=== PATIENT | male | born 1945 | race Caucasian/White ===

== ENCOUNTER 2022-01-31 17:45 | Inpatient (IN) | payer OTHER, SELFPAY ==
[2022-01-31 18:18] LABS: #Lymphocytes 0.4 thou/uL (1.20-3.40); #Monocytes 0.5 thou/uL (0.11-0.59); %Basophils 0.1 % (0.0-1.0); %Eosinophils 0.1 % (0.0-10.0); %Lymphocytes 2.8 % (21.0-51.0); %Monocytes 3.5 % (0.0-10.0); %Neutrophils 93.5 % (42.0-75.0); Hemoglobin 15.5 g/dL (14.0-18.0); Mean Corpuscular HGB CONC 33.1 g/dL (32.0-36.0); Mean Corpuscular Hemoglobin 33.9 pg (27.0-31.0); Mean Platelet Volume 7.9 fL (7.4-10.4); Platelet Count 329 thou/uL (130-400); RBC Distribution Width 11.6 % (11.5-14.5); Red Blood Cell (RBC) Count 4.56 mill/uL (4.70-6.10); White Blood Cell (WBC) Count 14.9 thou/uL (4.8-10.8)
[2022-01-31 18:41] LABS: ALT (SGPT) 9 U/L (8-55); AST (SGOT) 21 U/L (5-34); Albumin 4.3 g/dL (3.4-4.8); Alkaline Phosphatase 62 U/L (40-110); Anion Gap 18 mmol/L (10-20); BUN (Urea Nitrogen) 19 mg/dL (8.4-25.7); Bilirubin, Total 0.5 mg/dL (0.2-1.2); Calc. Creatinine Clearance 0 mL/min (70-130); Calcium 8.9 mg/dL (7.8-10.44); Carbon Dioxide 26 mmol/L (23-31); Chloride 107 mmol/L (98-107); Estimated GFR 81; Globulin 2.8 g/dL (2.4-3.5); Glucose 116 mg/dL (83-110); Potassium 5.5 mmol/L (3.5-5.1); Protein, Total 7.1 g/dL (5.8-8.1); Sodium 145 mmol/L (136-145)
[2022-01-31] MEDS ORDERED: Enoxaparin Sodium 80 MG/0.8 ML SYRINGE ONE (19:03)
[2022-01-31] MEDS ORDERED: Enoxaparin Sodium 60 MG/0.6 ML SYRINGE ONE (19:04)
[2022-01-31 19:12] LABS: CKMB 18.7 ng/mL (0-6.6)
[2022-01-31 20:13] LABS: SARS-CoV-2 NAA Rapid Test Not Detected (NotDetected)
[2022-01-31] MEDS ORDERED: Nitroglycerin 0.4 MG TAB (25 Tab Bottle) SL PRN (20:33)
[2022-01-31] MEDS ORDERED: Morphine 2 MG/ML VIAL SLOW IVP PRN (20:34)
[2022-01-31] MEDS ORDERED: Ondansetron PF 4 MG/2 ML Vial IVP PRN (20:34)
[2022-01-31] MEDS ORDERED: Aspirin Chewable 81 MG TAB PO SCH (20:45)
[2022-01-31] MEDS ORDERED: Enoxaparin Sodium 40 MG/0.4 ML SYRINGE SC SCH (20:45)
[2022-01-31] MEDS ORDERED: hydrALAZINE 20 MG/ML VIAL SLOW IVP PRN (20:58)
[2022-01-31] MEDS ORDERED: Magnesium 2 GM/50 ML(in water) 2 GM in Premix Bag 1 BAG IVPB SCH (21:00)
[2022-01-31] MEDS ORDERED: Furosemide 20 MG/2 ML VIAL SLOW IVP SCH (21:00)
[2022-01-31] MEDS ORDERED: Clopidogrel Bisulfate 75 MG TAB PO SCH (21:00)
[2022-01-31 21:32] LABS: Troponin I 2.502 ng/mL (< 0.028)
[2022-01-31] MEDS ORDERED: Famotidine 20 MG TAB PO SCH (22:00)
[2022-01-31] MEDS: Nicotine 21 MG PATCH TD SCH (22:01)
[2022-01-31] MEDS: Atorvastatin Calcium 40 MG TAB PO SCH (22:01)
[2022-01-31] MEDS: guaiFENesin ER 600 MG TAB PO SCH (22:01)
[2022-01-31] MEDS: methylPREDNISolone Sod Succ 40 MG VIAL IVP SCH (22:02)
[2022-01-31] MEDS: cefTRIAXone\\ROCEPHIN 1 GM in Sodium Chloride 0.9% 100 ML IVPB SCH (23:28)
[2022-02-01] MEDS: Azithromycin 500 MG in Sodium Chloride 0.9% 250 ML 250 ML IVPB SCH ×2 (00:16→22:45)
[2022-02-01 01:39] LABS: Troponin I 2.777 ng/mL (< 0.028)
[2022-02-01 01:52] LABS: Bilirubin Negative (Negative); Blood, Urine Negative (Negative); Clarity Turbid (Clear); Glucose, Urine (Dipstick) Normal (Negative); Ketone, Urine 10 mg/dL (Negative); Leukocyte 25 Leu/uL (Negative); Nitrite Negative (Negative); Protein, Urine (Dipstick) 30 mg/dL (Neg-Trace); Specific Gravity, Urine 1.013 (1.002-1.036); Urobilinogen Normal mg/dL (Less than 2)
[2022-02-01 01:55] LABS: Urine Culture Reflex No No
[2022-02-01 02:07] LABS: RBC/HPF None Seen HPF (0-3)
[2022-02-01 02:09] LABS: Bacteria/HPF 4+ HPF (None Seen)
[2022-02-01 03:45] LABS: #Lymphocytes 0.6 thou/uL (1.20-3.40); #Monocytes 0.2 thou/uL (0.11-0.59); #Neutrophils 8.6 thou/uL (1.40-6.50); %Lymphocytes 6.7 % (21.0-51.0); %Monocytes 1.6 % (0.0-10.0); %Neutrophils 91.7 % (42.0-75.0); Hemoglobin 14.3 g/dL (14.0-18.0); Mean Corpuscular HGB CONC 31.5 g/dL (32.0-36.0); Mean Corpuscular Hemoglobin 32.6 pg (27.0-31.0); Mean Platelet Volume 8.1 fL (7.4-10.4); Platelet Count 301 thou/uL (130-400); RBC Distribution Width 11.7 % (11.5-14.5); Red Blood Cell (RBC) Count 4.38 mill/uL (4.70-6.10); White Blood Cell (WBC) Count 9.4 thou/uL (4.8-10.8)
[2022-02-01 04:09] LABS: ALT (SGPT) 10 U/L (8-55); AST (SGOT) 21 U/L (5-34); Alkaline Phosphatase 55 U/L (40-110); Anion Gap 18 mmol/L (10-20); BUN (Urea Nitrogen) 25 mg/dL (8.4-25.7); Bilirubin, Total 0.4 mg/dL (0.2-1.2); Calc. Creatinine Clearance 58 mL/min (70-130); Calcium 9.4 mg/dL (7.8-10.44); Carbon Dioxide 26 mmol/L (23-31); Cardiac Risk 2.6 (Less than 4.5); Chloride 106 mmol/L (98-107); Cholesterol 168 mg/dl (< 200 Desired); Estimated GFR 81; Globulin 2.7 g/dL (2.4-3.5); Glucose 143 mg/dL (83-110); HDL Cholesterol 64 mg/dL (>60 Neg Risk); LDL Cholesterol, Calculated 93 mg/dL; Potassium 4.5 mmol/L (3.5-5.1); Protein, Total 6.7 g/dL (5.8-8.1); Sodium 145 mmol/L (136-145); Triglycerides 53 mg/dL (Less than 150)
[2022-02-01] MEDS: methylPREDNISolone Sod Succ 40 MG VIAL IVP SCH ×3 (05:07→22:45)
[2022-02-01 05:18] LABS: Free T4 (Free Thyroxine) 0.78 ng/dL (0.70-1.48); T4 4.1 ug/dL (4.87-11.72)
[2022-02-01] MEDS ORDERED: Enoxaparin Sodium 40 MG/0.4 ML SYRINGE SC SCH (09:00)
[2022-02-01] MEDS ORDERED: Fluticasone Propionate Nasal Spray 16 gm Bottle NASAL SCH (09:00)
[2022-02-01] MEDS: guaiFENesin ER 600 MG TAB PO SCH ×2 (09:35→20:42)
[2022-02-01] MEDS: Bupropion 150 MG XL TAB PO SCH (09:35)
[2022-02-01] MEDS: Famotidine 20 MG TAB PO SCH ×2 (09:36→20:43)
[2022-02-01] MEDS: Aspirin 325 mg Enteric Coated Tablet PO SCH (09:36)
[2022-02-01] MEDS: Clopidogrel Bisulfate 75 MG TAB PO SCH (09:36)
[2022-02-01] MEDS: Fluticasone Propionate Nasal Spray 16 gm Bottle NASAL SCH (13:57)
[2022-02-01 14:59] LABS: Amphetamine Not Detected (NotDetected); Barbiturates Screen Not Detected (NotDetected); Benzodiazepine Screen Not Detected (NotDetected); Cocaine Metabolite Screen Not Detected (NotDetected); Methadone Not Detected (NotDetected); Methamphetamine Not Detected (NotDetected); Opiate Screen Not Detected (NotDetected); Oxycodone Screen Not Detected (NotDetected); Phencyclidine (PCP) Not Detected (NotDetected); THC/Cannabinoid Screen Not Detected (NotDetected); Tricyclic Screen Not Detected (NotDetected)
[2022-02-01] MEDS: Budesonide 0.5 MG/2 ML NEB NEB SCH (19:05)
[2022-02-01] MEDS: Atorvastatin Calcium 40 MG TAB PO SCH (20:42)
[2022-02-01] MEDS: Montelukast Sodium 10 mg Tablet PO SCH (20:42)
[2022-02-01] MEDS: Enoxaparin Sodium 60 MG/0.6 ML SYRINGE SC SCH (20:42)
[2022-02-01] MEDS: guaiFENesin/DM ER PO SCH (20:44)
[2022-02-01] MEDS: cefTRIAXone\\ROCEPHIN 1 GM in Sodium Chloride 0.9% 100 ML IVPB SCH (20:58)
[2022-02-01] MEDS: Nicotine 21 MG PATCH TD SCH (21:03)
[2022-02-02] MEDS: Levothyroxine Sodium 100 MCG TAB PO SCH (05:47)
[2022-02-02] MEDS: methylPREDNISolone Sod Succ 40 MG VIAL IVP SCH (05:47)
[2022-02-02 06:21] LABS: #Lymphocytes 1.1 thou/uL (1.20-3.40); #Monocytes 0.9 thou/uL (0.11-0.59); #Neutrophils 16.1 thou/uL (1.40-6.50); %Basophils 0.1 % (0.0-1.0); %Eosinophils 0.1 % (0.0-10.0); %Lymphocytes 6.1 % (21.0-51.0); %Monocytes 4.8 % (0.0-10.0); Hemoglobin 14.6 g/dL (14.0-18.0); Mean Corpuscular HGB CONC 30.9 g/dL (32.0-36.0); Mean Corpuscular Hemoglobin 31.9 pg (27.0-31.0); Mean Platelet Volume 8.4 fL (7.4-10.4); Platelet Count 336 thou/uL (130-400); RBC Distribution Width 11.7 % (11.5-14.5); Red Blood Cell (RBC) Count 4.58 mill/uL (4.70-6.10); White Blood Cell (WBC) Count 18.1 thou/uL (4.8-10.8)
[2022-02-02] MEDS: Budesonide 0.5 MG/2 ML NEB NEB SCH ×2 (06:45→18:25)
[2022-02-02] MEDS: guaiFENesin/DM ER PO SCH ×2 (07:51→20:13)
[2022-02-02] MEDS: Enoxaparin Sodium 60 MG/0.6 ML SYRINGE SC SCH ×2 (07:51→20:11)
[2022-02-02] MEDS: guaiFENesin ER 600 MG TAB PO SCH ×2 (07:51→20:11)
[2022-02-02] MEDS: Aspirin 325 mg Enteric Coated Tablet PO SCH (07:51)
[2022-02-02] MEDS: Famotidine 20 MG TAB PO SCH ×2 (07:51→20:12)
[2022-02-02] MEDS: Bupropion 150 MG XL TAB PO SCH (07:51)
[2022-02-02] MEDS: Clopidogrel Bisulfate 75 MG TAB PO SCH (07:51)
[2022-02-02] MEDS: Fluticasone Propionate Nasal Spray 16 gm Bottle NASAL SCH (07:56)
[2022-02-02] MEDS: cefTRIAXone\\ROCEPHIN 1 GM in Sodium Chloride 0.9% 100 ML IVPB SCH (20:10)
[2022-02-02] MEDS: Nicotine 21 MG PATCH TD SCH (20:11)
[2022-02-02] MEDS: Montelukast Sodium 10 mg Tablet PO SCH (20:12)
[2022-02-02] MEDS: Atorvastatin Calcium 40 MG TAB PO SCH (20:12)
[2022-02-02] MEDS: Azithromycin 250 MG TAB PO SCH (20:12)
[2022-02-03] MEDS: HYDROcodone/Acetaminophen 5/325 mg Tablet PO PRN (02:50)
[2022-02-03] MEDS: Levothyroxine Sodium 100 MCG TAB PO SCH (05:37)
[2022-02-03] MEDS: Budesonide 0.5 MG/2 ML NEB NEB SCH ×2 (07:10→18:25)
[2022-02-03] MEDS ORDERED: predniSONE 20 MG TAB PO SCH (08:00)
[2022-02-03] MEDS: Enoxaparin Sodium 60 MG/0.6 ML SYRINGE SC SCH ×2 (08:20→21:06)
[2022-02-03] MEDS: Bupropion 150 MG XL TAB PO SCH (08:21)
[2022-02-03] MEDS: Fluticasone Propionate Nasal Spray 16 gm Bottle NASAL SCH (08:21)
[2022-02-03] MEDS: Famotidine 20 MG TAB PO SCH ×2 (08:21→21:05)
[2022-02-03] MEDS: guaiFENesin ER 600 MG TAB PO SCH ×2 (08:21→21:04)
[2022-02-03] MEDS: Aspirin 325 mg Enteric Coated Tablet PO SCH (08:21)
[2022-02-03] MEDS: guaiFENesin/DM ER PO SCH ×2 (08:21→21:04)
[2022-02-03] MEDS: Clopidogrel Bisulfate 75 MG TAB PO SCH (08:21)
[2022-02-03] MEDS ORDERED: Lorazepam 1 MG TAB PO PRN (11:58)
[2022-02-03] MEDS ORDERED: Lorazepam 2 MG/ML VIAL SLOW IVP SCH ×2 (12:00→12:30)
[2022-02-03 12:46] LABS: Actual Bicarbonate (HCO3a) 27.5 mEq/L (22-28); Base Excess (BEa) 2.4 mEq/L (-2.0 to +3.0); Calcium, Ionized (arterial) 1.13 mmol/L (1.12-1.30); Carboxyhemoglobin (COHb) 0.5 gm% (0.0-3.0); Hemoglobin (Hb) 14.3 g/dL (14.0-18.0); O2 Tension (PaO2), arterial 150.3 mmHg (> 70.0); pH, Arterial 7.41 (7.35-7.45)
[2022-02-03 12:49] LABS: Puncture Site RBA
[2022-02-03] MEDS: methylPREDNISolone Sod Succ 40 MG VIAL IVP SCH ×2 (15:50→21:05)
[2022-02-03] MEDS: Atorvastatin Calcium 40 MG TAB PO SCH (21:05)
[2022-02-03] MEDS: Azithromycin 250 MG TAB PO SCH (21:05)
[2022-02-03] MEDS: Montelukast Sodium 10 mg Tablet PO SCH (21:05)
[2022-02-03] MEDS: cefTRIAXone\\ROCEPHIN 1 GM in Sodium Chloride 0.9% 100 ML IVPB SCH (21:29)
[2022-02-03] MEDS: Nicotine 21 MG PATCH TD SCH (21:30)
[2022-02-04] MEDS: Benzonatate 100 MG CAP PO PRN (01:12)
[2022-02-04] MEDS: Levothyroxine Sodium 100 MCG TAB PO SCH (05:32)
[2022-02-04 05:40] LABS: #Lymphocytes 0.7 thou/uL (1.20-3.40); #Monocytes 0.6 thou/uL (0.11-0.59); #Neutrophils 6.3 thou/uL (1.40-6.50); %Basophils 0.1 % (0.0-1.0); %Lymphocytes 8.7 % (21.0-51.0); %Monocytes 8.2 % (0.0-10.0); Hemoglobin 13.2 g/dL (14.0-18.0); Mean Corpuscular HGB CONC 31.6 g/dL (32.0-36.0); Mean Corpuscular Hemoglobin 32.1 pg (27.0-31.0); Mean Platelet Volume 8.5 fL (7.4-10.4); Platelet Count 252 thou/uL (130-400); RBC Distribution Width 11.6 % (11.5-14.5); White Blood Cell (WBC) Count 7.5 thou/uL (4.8-10.8)
[2022-02-04 06:11] LABS: ALT (SGPT) 24 U/L (8-55); AST (SGOT) 18 U/L (5-34); Albumin 3.5 g/dL (3.4-4.8); Alkaline Phosphatase 44 U/L (40-110); Anion Gap 11 mmol/L (10-20); BUN (Urea Nitrogen) 16 mg/dL (8.4-25.7); Bilirubin, Total 0.5 mg/dL (0.2-1.2); Calc. Creatinine Clearance 80 mL/min (70-130); Calcium 8.6 mg/dL (7.8-10.44); Carbon Dioxide 29 mmol/L (23-31); Chloride 105 mmol/L (98-107); Estimated GFR 95; Globulin 2.1 g/dL (2.4-3.5); Glucose 132 mg/dL (83-110); Magnesium 2.3 mg/dL (1.6-2.6); Potassium 4.2 mmol/L (3.5-5.1); Protein, Total 5.6 g/dL (5.8-8.1); Sodium 141 mmol/L (136-145)
[2022-02-04] MEDS: Budesonide 0.5 MG/2 ML NEB NEB SCH ×2 (06:56→18:31)
[2022-02-04] MEDS: Aspirin 325 mg Enteric Coated Tablet PO SCH (08:33)
[2022-02-04] MEDS: Enoxaparin Sodium 60 MG/0.6 ML SYRINGE SC SCH ×2 (08:35→19:55)
[2022-02-04] MEDS: Clopidogrel Bisulfate 75 MG TAB PO SCH (08:35)
[2022-02-04] MEDS: Bupropion 150 MG XL TAB PO SCH (08:35)
[2022-02-04] MEDS: Fluticasone Propionate Nasal Spray 16 gm Bottle NASAL SCH (08:36)
[2022-02-04] MEDS: methylPREDNISolone Sod Succ 40 MG VIAL IVP SCH ×3 (08:36→19:57)
[2022-02-04] MEDS: Famotidine 20 MG TAB PO SCH ×2 (08:36→19:56)
[2022-02-04] MEDS: guaiFENesin/DM ER PO SCH ×2 (08:36→19:57)
[2022-02-04] MEDS: Nicotine 21 MG PATCH TD SCH (19:55)
[2022-02-04] MEDS: Atorvastatin Calcium 40 MG TAB PO SCH (19:56)
[2022-02-04] MEDS: Montelukast Sodium 10 mg Tablet PO SCH (19:56)
[2022-02-04] MEDS: cefTRIAXone\\ROCEPHIN 1 GM in Sodium Chloride 0.9% 100 ML IVPB SCH (21:45)
[2022-02-05] MEDS: HYDROcodone/Acetaminophen 5/325 mg Tablet PO PRN ×2 (02:58→07:52)
[2022-02-05] MEDS: Benzonatate 100 MG CAP PO PRN (03:00)
[2022-02-05] MEDS ORDERED: Lorazepam 1 MG TAB PO SCH (05:15)
[2022-02-05] MEDS: Levothyroxine Sodium 100 MCG TAB PO SCH (05:45)
[2022-02-05] MEDS: Budesonide 0.5 MG/2 ML NEB NEB SCH ×2 (07:06→19:22)
[2022-02-05] MEDS: guaiFENesin/DM ER PO SCH ×2 (07:51→20:16)
[2022-02-05] MEDS: Clopidogrel Bisulfate 75 MG TAB PO SCH (07:51)
[2022-02-05] MEDS: Aspirin 325 mg Enteric Coated Tablet PO SCH (07:51)
[2022-02-05] MEDS: Famotidine 20 MG TAB PO SCH ×2 (07:51→20:15)
[2022-02-05] MEDS: Bupropion 150 MG XL TAB PO SCH (07:51)
[2022-02-05] MEDS: Enoxaparin Sodium 40 MG/0.4 ML SYRINGE SC SCH (07:52)
[2022-02-05] MEDS: Fluticasone Propionate Nasal Spray 16 gm Bottle NASAL SCH (07:52)
[2022-02-05] MEDS: methylPREDNISolone Sod Succ 40 MG VIAL IVP SCH ×3 (07:52→20:17)
[2022-02-05] MEDS: Atorvastatin Calcium 40 MG TAB PO SCH (20:15)
[2022-02-05] MEDS: Montelukast Sodium 10 mg Tablet PO SCH (20:15)
[2022-02-05] MEDS: cefTRIAXone\\ROCEPHIN 1 GM in Sodium Chloride 0.9% 100 ML IVPB SCH (20:15)
[2022-02-05] MEDS: Nicotine 21 MG PATCH TD SCH (20:17)
[2022-02-06] MEDS: Levothyroxine Sodium 100 MCG TAB PO SCH (05:29)
[2022-02-06] MEDS: Budesonide 0.5 MG/2 ML NEB NEB SCH ×2 (07:16→19:24)
[2022-02-06] MEDS: Enoxaparin Sodium 40 MG/0.4 ML SYRINGE SC SCH (08:46)
[2022-02-06] MEDS: Famotidine 20 MG TAB PO SCH ×2 (08:46→20:56)
[2022-02-06] MEDS: Bupropion 150 MG XL TAB PO SCH (08:46)
[2022-02-06] MEDS: Aspirin 325 mg Enteric Coated Tablet PO SCH (08:46)
[2022-02-06] MEDS: Clopidogrel Bisulfate 75 MG TAB PO SCH (08:46)
[2022-02-06] MEDS: methylPREDNISolone Sod Succ 40 MG VIAL IVP SCH (08:47)
[2022-02-06] MEDS: Fluticasone Propionate Nasal Spray 16 gm Bottle NASAL SCH (08:51)
[2022-02-06] MEDS: guaiFENesin/DM ER PO SCH ×2 (08:51→20:56)
[2022-02-06] MEDS: Atorvastatin Calcium 40 MG TAB PO SCH (20:56)
[2022-02-06] MEDS: Montelukast Sodium 10 mg Tablet PO SCH (20:56)
[2022-02-06] MEDS: Nicotine 21 MG PATCH TD SCH (20:56)
[2022-02-06] MEDS: Acetaminophen 325 MG TAB PO PRN (20:57)
[2022-02-06] MEDS: cefTRIAXone\\ROCEPHIN 1 GM in Sodium Chloride 0.9% 100 ML IVPB SCH (21:04)
[2022-02-07] MEDS: Levothyroxine Sodium 100 MCG TAB PO SCH (05:49)
[2022-02-07] MEDS: Budesonide 0.5 MG/2 ML NEB NEB SCH ×2 (06:44→19:45)
[2022-02-07] MEDS: Famotidine 20 MG TAB PO SCH ×2 (08:31→20:43)
[2022-02-07] MEDS: Bupropion 150 MG XL TAB PO SCH (08:31)
[2022-02-07] MEDS: guaiFENesin/DM ER PO SCH ×2 (08:31→20:43)
[2022-02-07] MEDS: Clopidogrel Bisulfate 75 MG TAB PO SCH (08:31)
[2022-02-07] MEDS: Aspirin 325 mg Enteric Coated Tablet PO SCH (08:31)
[2022-02-07] MEDS: methylPREDNISolone Sod Succ 40 MG VIAL IVP SCH (08:31)
[2022-02-07] MEDS: Fluticasone Propionate Nasal Spray 16 gm Bottle NASAL SCH (08:32)
[2022-02-07] MEDS: Enoxaparin Sodium 40 MG/0.4 ML SYRINGE SC SCH (08:32)
[2022-02-07] MEDS: Nicotine 21 MG PATCH TD SCH (20:42)
[2022-02-07] MEDS: Atorvastatin Calcium 40 MG TAB PO SCH (20:43)
[2022-02-07] MEDS: Montelukast Sodium 10 mg Tablet PO SCH (20:43)
[2022-02-08] MEDS: Levothyroxine Sodium 100 MCG TAB PO SCH (05:06)
[2022-02-08] MEDS: Bisacodyl 5 MG TAB PO PRN (05:06)
[2022-02-08] MEDS: Budesonide 0.5 MG/2 ML NEB NEB SCH ×2 (07:00→19:04)
[2022-02-08] MEDS: Bupropion 150 MG XL TAB PO SCH (08:17)
[2022-02-08] MEDS: Aspirin 325 mg Enteric Coated Tablet PO SCH (08:17)
[2022-02-08] MEDS: Famotidine 20 MG TAB PO SCH ×2 (08:17→20:47)
[2022-02-08] MEDS: Enoxaparin Sodium 40 MG/0.4 ML SYRINGE SC SCH (08:17)
[2022-02-08] MEDS: guaiFENesin/DM ER PO SCH ×2 (08:17→20:47)
[2022-02-08] MEDS: methylPREDNISolone Sod Succ 40 MG VIAL IVP SCH (08:17)
[2022-02-08] MEDS: Clopidogrel Bisulfate 75 MG TAB PO SCH (08:18)
[2022-02-08] MEDS: Fluticasone Propionate Nasal Spray 16 gm Bottle NASAL SCH (08:21)
[2022-02-08 12:10] VITALS: BMI 20.9
[2022-02-08] MEDS: Nicotine 21 MG PATCH TD SCH (20:47)
[2022-02-08] MEDS: Montelukast Sodium 10 mg Tablet PO SCH (20:47)
[2022-02-08] MEDS: Atorvastatin Calcium 40 MG TAB PO SCH (20:47)
[2022-02-09] MEDS: Levothyroxine Sodium 100 MCG TAB PO SCH (05:03)
[2022-02-09] MEDS: Budesonide 0.5 MG/2 ML NEB NEB SCH ×2 (07:36→19:00)
[2022-02-09] MEDS: Aspirin 325 mg Enteric Coated Tablet PO SCH (08:27)
[2022-02-09] MEDS: Enoxaparin Sodium 40 MG/0.4 ML SYRINGE SC SCH (08:27)
[2022-02-09] MEDS: guaiFENesin/DM ER PO SCH ×2 (08:27→20:15)
[2022-02-09] MEDS: predniSONE 20 MG TAB PO SCH (08:28)
[2022-02-09] MEDS: Clopidogrel Bisulfate 75 MG TAB PO SCH (08:28)
[2022-02-09] MEDS: Famotidine 20 MG TAB PO SCH ×2 (08:28→20:14)
[2022-02-09] MEDS: Fluticasone Propionate Nasal Spray 16 gm Bottle NASAL SCH (08:29)
[2022-02-09] MEDS: Bupropion 150 MG XL TAB PO SCH (08:32)
[2022-02-09] MEDS: Mometasone 200 MCG/Formoterol 5 MCG 120 PUFF INHALER INH SCH (19:00)
[2022-02-09] MEDS: Atorvastatin Calcium 40 MG TAB PO SCH (20:14)
[2022-02-09] MEDS: Montelukast Sodium 10 mg Tablet PO SCH (20:14)
[2022-02-09] MEDS: Nicotine 21 MG PATCH TD SCH (20:15)
[2022-02-10] MEDS: Levothyroxine Sodium 100 MCG TAB PO SCH (05:50)
[2022-02-10] MEDS: Budesonide 0.5 MG/2 ML NEB NEB SCH ×2 (07:40→18:58)
[2022-02-10] MEDS: Mometasone 200 MCG/Formoterol 5 MCG 120 PUFF INHALER INH SCH ×2 (07:41→18:58)
[2022-02-10] MEDS: Clopidogrel Bisulfate 75 MG TAB PO SCH (07:55)
[2022-02-10] MEDS: Famotidine 20 MG TAB PO SCH ×2 (07:55→20:17)
[2022-02-10] MEDS: Bupropion 150 MG XL TAB PO SCH (07:55)
[2022-02-10] MEDS: Enoxaparin Sodium 40 MG/0.4 ML SYRINGE SC SCH (07:56)
[2022-02-10] MEDS: Aspirin 325 mg Enteric Coated Tablet PO SCH (07:56)
[2022-02-10] MEDS: guaiFENesin/DM ER PO SCH ×2 (07:56→20:17)
[2022-02-10] MEDS: predniSONE 20 MG TAB PO SCH (07:56)
[2022-02-10] MEDS: Fluticasone Propionate Nasal Spray 16 gm Bottle NASAL SCH (07:57)
[2022-02-10] MEDS: Nicotine 21 MG PATCH TD SCH (20:16)
[2022-02-10] MEDS: Atorvastatin Calcium 40 MG TAB PO SCH (20:17)
[2022-02-10] MEDS: Montelukast Sodium 10 mg Tablet PO SCH (20:17)
[2022-02-11] MEDS: Bisacodyl 5 MG TAB PO PRN ×2 (05:30→21:38)
[2022-02-11] MEDS: Levothyroxine Sodium 100 MCG TAB PO SCH (05:30)
[2022-02-11] MEDS: Mometasone 200 MCG/Formoterol 5 MCG 120 PUFF INHALER INH SCH ×2 (06:31→18:53)
[2022-02-11] MEDS: Budesonide 0.5 MG/2 ML NEB NEB SCH ×2 (06:31→18:53)
[2022-02-11] MEDS: Famotidine 20 MG TAB PO SCH ×2 (08:56→21:37)
[2022-02-11] MEDS: Enoxaparin Sodium 40 MG/0.4 ML SYRINGE SC SCH (08:56)
[2022-02-11] MEDS: Aspirin 325 mg Enteric Coated Tablet PO SCH (08:57)
[2022-02-11] MEDS: guaiFENesin/DM ER PO SCH ×2 (08:57→21:38)
[2022-02-11] MEDS: Clopidogrel Bisulfate 75 MG TAB PO SCH ×2 (08:57→08:58)
[2022-02-11] MEDS: Fluticasone Propionate Nasal Spray 16 gm Bottle NASAL SCH (08:58)
[2022-02-11] MEDS: predniSONE 20 MG TAB PO SCH (08:58)
[2022-02-11] MEDS: Bupropion 150 MG XL TAB PO SCH (08:58)
[2022-02-11] MEDS: Nicotine 21 MG PATCH TD SCH (21:37)
[2022-02-11] MEDS: Montelukast Sodium 10 mg Tablet PO SCH (21:38)
[2022-02-11] MEDS: Acetaminophen 325 MG TAB PO PRN (21:38)
[2022-02-11] MEDS: Benzonatate 100 MG CAP PO PRN (21:38)
[2022-02-11] MEDS: Atorvastatin Calcium 40 MG TAB PO SCH (21:38)
[2022-02-12] MEDS: Levothyroxine Sodium 100 MCG TAB PO SCH (05:08)
[2022-02-12] MEDS: Mometasone 200 MCG/Formoterol 5 MCG 120 PUFF INHALER INH SCH (07:31)
[2022-02-12] MEDS: Budesonide 0.5 MG/2 ML NEB NEB SCH (07:31)
[2022-02-12 08:09] VITALS: BP 146/77; TEMP 97.9
[2022-02-12] MEDS: Bupropion 150 MG XL TAB PO SCH (08:26)
[2022-02-12] MEDS: Aspirin 325 mg Enteric Coated Tablet PO SCH (08:26)
[2022-02-12] MEDS: Enoxaparin Sodium 40 MG/0.4 ML SYRINGE SC SCH (08:26)
[2022-02-12] MEDS: predniSONE 20 MG TAB PO SCH (08:26)
[2022-02-12] MEDS: Famotidine 20 MG TAB PO SCH (08:26)
[2022-02-12] MEDS: Fluticasone Propionate Nasal Spray 16 gm Bottle NASAL SCH (08:27)
[2022-02-12] MEDS: guaiFENesin/DM ER PO SCH (08:27)
== END 2022-02-12 18:29 | disposition home or self-care (01) | DRG 189 ==
LOC: ERS 17:45 → 2NO 20:34 → IMCU/EMU 23:11 → T4-B 02-01 20:28
PROVIDERS: ADMIT Internal Medicine; ATTEND Internal Medicine
DX: J96.01 Acute respiratory failure with hypoxia (principal); I21.A1 Myocardial infarction type 2; G92.8 Other toxic encephalopathy; J44.1 Chronic obstructive pulmonary disease with (acute) exacerbation; N39.0 Urinary tract infection, site not specified; Z20.822 Contact with and (suspected) exposure to COVID-19; N31.9 Neuromuscular dysfunction of bladder, unspecified; F17.210 Nicotine dependence, cigarettes, uncomplicated; F03.90 Unspecified dementia, unspecified severity, without behavioral disturbance, psychotic disturbance, mood disturbance, and anxiety; E03.8 Other specified hypothyroidism; D72.829 Elevated white blood cell count, unspecified; T38.0X5A Adverse effect of glucocorticoids and synthetic analogues, initial encounter; I25.5 Ischemic cardiomyopathy; I25.10 Atherosclerotic heart disease of native coronary artery without angina pectoris; I10 Essential (primary) hypertension; Z95.5 Presence of coronary angioplasty implant and graft; Z79.82 Long term (current) use of aspirin; Z79.51 Long term (current) use of inhaled steroids; Z79.899 Other long term (current) drug therapy; Z79.890 Hormone replacement therapy
CPT/HCPCS: 36415; 36600; 71045; 80053; 80061; 80306; 81001; 82553; 82805; 83605; 83735; 83880; 84436; 84439; 84443; 84481; 84484; 85025; 87040; 87070; 87086; 87205; 93005; 93306; 94640; 94664; 96372; J0456; J0696; J1650; J1940; J2060; J2920; J3475; J3490; J7050; J7512; J7620; J7626; U0002; U0003; U0005

== ENCOUNTER 2022-11-21 09:44 | Inpatient (IN) | payer OTHER ==
[2022-11-21] MEDS ORDERED: VANCOMYCIN 1.75 GM/500 ML BAG 1.75 GM in Premix Bag 1 BAG IVPB SCH (10:45)
[2022-11-21 10:50] LABS: Mean Corpuscular HGB CONC 34.5 g/dL (32.0-36.0); Mean Corpuscular Hemoglobin 33.9 pg (27.0-31.0); Mean Corpuscular Volume 98.3 fl (78.0-98.0); Mean Platelet Volume 8.6 fL (7.4-10.4); Platelet Count 285 10x3/uL (130-400); RBC Distribution Width 12.7 % (11.5-14.5); Red Blood Cell (RBC) Count 3.84 mill/uL (4.70-6.10); White Blood Cell (WBC) Count 21.8 10x3/uL (4.8-10.8)
[2022-11-21 11:00] LABS: PTT 28.4 sec (22.9-36.1); Prothrombin Time 13.9 sec (12.0-14.7)
[2022-11-21] MEDS ORDERED: Cefepime 2 GM VIAL ONE (11:10)
[2022-11-21 11:11] LABS: ALT (SGPT) 12 U/L (8-55); AST (SGOT) 11 U/L (5-34); Albumin 3.5 g/dL (3.4-4.8); Alkaline Phosphatase 53 U/L (40-110); Anion Gap 11 mmol/L (10-20); BUN (Urea Nitrogen) 35 mg/dL (8.4-25.7); Bilirubin, Total 0.4 mg/dL (0.2-1.2); CK (CPK) 52 U/L (30-200); Calc. Creatinine Clearance 0 mL/min (70-130); Calcium 8.8 mg/dL (7.8-10.44); Carbon Dioxide 27 mmol/L (23-31); Chloride 109 mmol/L (98-107); Estimated GFR 91; Globulin 2.7 g/dL (2.4-3.5); Glucose 172 mg/dL (83-110); Lipase 20 U/L (8-78); Potassium 4.4 mmol/L (3.5-5.1); Protein, Total 6.2 g/dL (5.8-8.1); Sodium 143 mmol/L (136-145)
[2022-11-21 11:45] LABS: Clarity Turbid (Clear)
[2022-11-21 11:46] LABS: Leukocyte Unable to Interpret Leu/uL (Negative); Specific Gravity, Urine 1.025 (1.002-1.036); pH, Urine 8.5 (5.0-9.0)
[2022-11-21 11:47] LABS: Bilirubin Unable to Interpret (Negative); Blood, Urine Unable to Interpret (Negative); Glucose, Urine (Dipstick) Unable to Interpret mg/dL (Negative); Ketone, Urine Unable to Interpret mg/dL (Negative); Nitrite Unable to Interpret (Negative); Protein, Urine (Dipstick) Unable to Interpret mg/dL (Neg-Trace); RBC/HPF 21-50 HPF (0-3); Urobilinogen UNABLE TO INTERPRET mg/dL (Less than 2)
[2022-11-21 11:48] LABS: Squamous Epithelial 0-3 HPF (0-3)
[2022-11-21 11:49] LABS: Bacteria/HPF 4+ HPF (None Seen)
[2022-11-21 11:51] LABS: Triple Phosphate Crystal 2+ HPF (None Seen)
[2022-11-21 12:02] LABS: Band 3 % (5-11); Hypochromia SLIGHT = 6-15 cells (100X) (0-5/hpf); Lymphocytes 2 % (21-51); MDiff Complete? YES; Monocytes 5 % (0-10); Neutrophil 90 % (42-75); Platelet Morphology Comment Appears Adequate
[2022-11-21] MEDS ORDERED: Iopamidol-370 76% 500 ML MDV (1 ML CHARGE) ONE (15:46)
[2022-11-21 16:34] VITALS: BMI 27.2
[2022-11-21] MEDS: Ipratropium 200 Puff Oral Inhaler INH SCH (18:50)
[2022-11-21] MEDS: Albuterol 200 PUFF (6.7GM INHALER) INH SCH (18:50)
[2022-11-21] MEDS: Mometasone/Formoterol 200/5 60 PUFF INH SCH (18:53)
[2022-11-21] MEDS ORDERED: Ipratropium Bromide 2.5 ml Neb NEB SCH ×2 (19:00)
[2022-11-21] MEDS: Cefepime 2 GM in Sodium Chloride 0.9% 100 ML IVPB SCH (20:39)
[2022-11-21] MEDS: Melatonin 3 MG TAB PO SCH (20:40)
[2022-11-21] MEDS: Acetaminophen 325 MG TAB PO PRN (20:40)
[2022-11-22] MEDS: Albuterol 200 PUFF (6.7GM INHALER) INH SCH ×4 (00:56→18:56)
[2022-11-22] MEDS: Ipratropium 200 Puff Oral Inhaler INH SCH ×3 (00:56→18:58)
[2022-11-22 07:32] LABS: #Basophils 0.1 thou/uL (0.0-0.2); #Eosinphils 0.2 thou/uL (0.0-0.7); #Lymphocytes 1.1 thou/uL (1.20-3.40); #Monocytes 0.8 thou/uL (0.11-0.59); #Neutrophils 9.3 thou/uL (1.40-6.50); %Basophils 0.5 % (0.0-1.0); %Eosinophils 1.8 % (0.0-10.0); %Lymphocytes 9.7 % (21.0-51.0); %Monocytes 6.6 % (0.0-10.0); %Neutrophils 81.4 % (42.0-75.0); Hemoglobin 11.3 g/dL (14.0-18.0); Mean Corpuscular HGB CONC 32.1 g/dL (32.0-36.0); Mean Corpuscular Hemoglobin 31.1 pg (27.0-31.0); Mean Platelet Volume 8.5 fL (7.4-10.4); Platelet Count 269 10x3/uL (130-400); RBC Distribution Width 12.7 % (11.5-14.5); Red Blood Cell (RBC) Count 3.64 mill/uL (4.70-6.10); White Blood Cell (WBC) Count 11.5 10x3/uL (4.8-10.8)
[2022-11-22 07:38] LABS: Hemoglobin A1c 6.3 % (4.0-6.0)
[2022-11-22 08:00] LABS: ALT (SGPT) 12 U/L (8-55); AST (SGOT) 9 U/L (5-34); Alkaline Phosphatase 44 U/L (40-110); Anion Gap 12 mmol/L (10-20); BUN (Urea Nitrogen) 14 mg/dL (8.4-25.7); Bilirubin, Direct 0.2 mg/dL (0.1-0.3); Bilirubin, Total 0.3 mg/dL (0.2-1.2); Calc. Creatinine Clearance 111 mL/min (70-130); Calcium 8.4 mg/dL (7.8-10.44); Carbon Dioxide 25 mmol/L (23-31); Chloride 112 mmol/L (98-107); Estimated GFR 99; Glucose 93 mg/dL (83-110); Magnesium 2.2 mg/dL (1.6-2.6); Potassium 3.5 mmol/L (3.5-5.1); Protein, Total 5.4 g/dL (5.8-8.1); Sodium 145 mmol/L (136-145)
[2022-11-22] MEDS: Mometasone/Formoterol 200/5 60 PUFF INH SCH ×2 (08:32→18:58)
[2022-11-22] MEDS: Cefepime 2 GM in Sodium Chloride 0.9% 100 ML IVPB SCH ×2 (08:43→20:24)
[2022-11-22] MEDS: Vancomycin 1.5 GRAM/300 ML BAG 1.5 GM in Premix Bag 1 BAG IVPB SCH (11:47)
[2022-11-22] MEDS: Melatonin 3 MG TAB PO SCH (20:24)
[2022-11-22] MEDS: QUEtiapine 25 MG TAB PO SCH (20:25)
[2022-11-22] MEDS: Acetaminophen 325 MG TAB PO PRN (20:31)
[2022-11-23] MEDS: Mometasone/Formoterol 200/5 60 PUFF INH SCH ×2 (06:58→18:42)
[2022-11-23] MEDS: Ipratropium 200 Puff Oral Inhaler INH SCH ×3 (06:58→18:42)
[2022-11-23] MEDS: Albuterol 200 PUFF (6.7GM INHALER) INH SCH ×3 (06:58→18:41)
[2022-11-23 07:28] LABS: #Basophils 0.1 thou/uL (0.0-0.2); #Eosinphils 0.5 thou/uL (0.0-0.7); #Lymphocytes 1.2 thou/uL (1.20-3.40); #Monocytes 0.7 thou/uL (0.11-0.59); #Neutrophils 7.5 thou/uL (1.40-6.50); %Basophils 0.8 % (0.0-1.0); %Lymphocytes 11.8 % (21.0-51.0); %Neutrophils 75.5 % (42.0-75.0); Hemoglobin 11.3 g/dL (14.0-18.0); Mean Corpuscular HGB CONC 32.5 g/dL (32.0-36.0); Mean Corpuscular Hemoglobin 31.5 pg (27.0-31.0); Mean Corpuscular Volume 96.7 fl (78.0-98.0); Mean Platelet Volume 8.3 fL (7.4-10.4); Platelet Count 307 10x3/uL (130-400); RBC Distribution Width 12.5 % (11.5-14.5); Red Blood Cell (RBC) Count 3.58 mill/uL (4.70-6.10)
[2022-11-23 07:44] LABS: Anion Gap 11 mmol/L (10-20); BUN (Urea Nitrogen) 12 mg/dL (8.4-25.7); Calc. Creatinine Clearance 110 mL/min (70-130); Calcium 8.3 mg/dL (7.8-10.44); Carbon Dioxide 28 mmol/L (23-31); Chloride 108 mmol/L (98-107); Estimated GFR 98; Glucose 91 mg/dL (83-110); Magnesium 2.3 mg/dL (1.6-2.6); Potassium 3.5 mmol/L (3.5-5.1); Sodium 143 mmol/L (136-145)
[2022-11-23] MEDS: Cefepime 2 GM in Sodium Chloride 0.9% 100 ML IVPB SCH ×2 (08:16→22:31)
[2022-11-23 11:02] LABS: Vancomycin, Trough 3.8 ug/mL
[2022-11-23] MEDS: Vancomycin 1.5 GRAM/300 ML BAG 1.5 GM in Premix Bag 1 BAG IVPB SCH ×3 (11:13→23:40)
[2022-11-23] MEDS: QUEtiapine 25 MG TAB PO SCH (22:31)
[2022-11-23] MEDS: Melatonin 3 MG TAB PO SCH (22:31)
[2022-11-24 06:53] LABS: #Basophils 0.1 thou/uL (0.0-0.2); #Eosinphils 0.6 thou/uL (0.0-0.7); #Lymphocytes 1.3 thou/uL (1.20-3.40); #Monocytes 0.9 thou/uL (0.11-0.59); #Neutrophils 7.6 thou/uL (1.40-6.50); %Basophils 0.6 % (0.0-1.0); %Eosinophils 5.7 % (0.0-10.0); %Lymphocytes 12.8 % (21.0-51.0); %Monocytes 8.2 % (0.0-10.0); %Neutrophils 72.7 % (42.0-75.0); Hemoglobin 12.1 g/dL (14.0-18.0); Mean Corpuscular HGB CONC 33.4 g/dL (32.0-36.0); Mean Corpuscular Hemoglobin 32.1 pg (27.0-31.0); Mean Corpuscular Volume 95.9 fl (78.0-98.0); Mean Platelet Volume 8.4 fL (7.4-10.4); Platelet Count 302 10x3/uL (130-400); RBC Distribution Width 12.4 % (11.5-14.5); Red Blood Cell (RBC) Count 3.76 mill/uL (4.70-6.10); White Blood Cell (WBC) Count 10.5 10x3/uL (4.8-10.8)
[2022-11-24 07:18] LABS: Anion Gap 13 mmol/L (10-20); BUN (Urea Nitrogen) 9 mg/dL (8.4-25.7); Calc. Creatinine Clearance 103 mL/min (70-130); Calcium 8.5 mg/dL (7.8-10.44); Carbon Dioxide 27 mmol/L (23-31); Chloride 105 mmol/L (98-107); Estimated GFR 97; Glucose 93 mg/dL (83-110); Magnesium 2.1 mg/dL (1.6-2.6); Potassium 3.9 mmol/L (3.5-5.1); Sodium 141 mmol/L (136-145)
[2022-11-24] MEDS: Albuterol 200 PUFF (6.7GM INHALER) INH SCH ×3 (07:33→18:43)
[2022-11-24] MEDS: Ipratropium 200 Puff Oral Inhaler INH SCH ×3 (07:33→18:43)
[2022-11-24] MEDS: Mometasone/Formoterol 200/5 60 PUFF INH SCH ×2 (07:37→18:43)
[2022-11-24] MEDS: Cefepime 2 GM in Sodium Chloride 0.9% 100 ML IVPB SCH ×2 (08:19→22:08)
[2022-11-24] MEDS: Vancomycin 1.5 GRAM/300 ML BAG 1.5 GM in Premix Bag 1 BAG IVPB SCH (11:48)
[2022-11-24] MEDS: QUEtiapine 25 MG TAB PO SCH (22:08)
[2022-11-24] MEDS: Melatonin 3 MG TAB PO SCH (22:08)
[2022-11-25 00:27] LABS: Vancomycin, Trough 13.2 ug/mL
[2022-11-25] MEDS: Vancomycin 1.5 GRAM/300 ML BAG 1.5 GM in Premix Bag 1 BAG IVPB SCH ×2 (01:29→11:32)
[2022-11-25] MEDS: Ipratropium 200 Puff Oral Inhaler INH SCH ×3 (08:19→19:26)
[2022-11-25] MEDS: Albuterol 200 PUFF (6.7GM INHALER) INH SCH ×3 (08:19→19:26)
[2022-11-25] MEDS: Mometasone/Formoterol 200/5 60 PUFF INH SCH ×2 (08:21→19:29)
[2022-11-25 08:22] LABS: #Eosinphils 0.5 thou/uL (0.0-0.7); #Lymphocytes 1.1 thou/uL (1.20-3.40); #Neutrophils 10.6 thou/uL (1.40-6.50); %Basophils 0.2 % (0.0-1.0); %Eosinophils 3.5 % (0.0-10.0); %Lymphocytes 8.3 % (21.0-51.0); %Monocytes 7.2 % (0.0-10.0); %Neutrophils 80.8 % (42.0-75.0); Hemoglobin 12.2 g/dL (14.0-18.0); Mean Corpuscular HGB CONC 32.5 g/dL (32.0-36.0); Mean Corpuscular Hemoglobin 31.6 pg (27.0-31.0); Mean Corpuscular Volume 97.2 fl (78.0-98.0); Mean Platelet Volume 7.9 fL (7.4-10.4); Platelet Count 331 10x3/uL (130-400); RBC Distribution Width 12.4 % (11.5-14.5); Red Blood Cell (RBC) Count 3.86 mill/uL (4.70-6.10); White Blood Cell (WBC) Count 13.1 10x3/uL (4.8-10.8)
[2022-11-25] MEDS: Cefepime 2 GM in Sodium Chloride 0.9% 100 ML IVPB SCH ×2 (08:42→21:32)
[2022-11-25 08:50] LABS: Anion Gap 13 mmol/L (10-20); BUN (Urea Nitrogen) 9 mg/dL (8.4-25.7); Calc. Creatinine Clearance 105 mL/min (70-130); Calcium 8.5 mg/dL (7.8-10.44); Carbon Dioxide 25 mmol/L (23-31); Chloride 106 mmol/L (98-107); Estimated GFR 97; Glucose 93 mg/dL (83-110); Magnesium 2.2 mg/dL (1.6-2.6); Potassium 3.8 mmol/L (3.5-5.1); Sodium 140 mmol/L (136-145)
[2022-11-25] MEDS ORDERED: Levothyroxine Sodium 100 MCG TAB PO SCH (09:15)
[2022-11-25] MEDS ORDERED: Senokot 8.6 MG TAB PO SCH (11:00)
[2022-11-25] MEDS: Sodium Chloride 0.9% 1,000 ML IV SCH (16:56)
[2022-11-25] MEDS ORDERED: Atorvastatin Calcium 40 MG TAB PO SCH (21:00)
[2022-11-25] MEDS: QUEtiapine 25 MG TAB PO SCH (21:33)
[2022-11-25] MEDS: Melatonin 3 MG TAB PO SCH (21:33)
[2022-11-26] MEDS ORDERED: Levothyroxine Sodium 100 MCG TAB PO SCH (06:00)
[2022-11-26 06:39] LABS: #Eosinphils 0.5 thou/uL (0.0-0.7); #Lymphocytes 1.2 thou/uL (1.20-3.40); #Monocytes 0.9 thou/uL (0.11-0.59); #Neutrophils 9.8 thou/uL (1.40-6.50); %Basophils 0.3 % (0.0-1.0); %Lymphocytes 9.4 % (21.0-51.0); %Monocytes 7.4 % (0.0-10.0); %Neutrophils 78.9 % (42.0-75.0); Hemoglobin 12.1 g/dL (14.0-18.0); Mean Corpuscular HGB CONC 32.4 g/dL (32.0-36.0); Mean Corpuscular Hemoglobin 31.7 pg (27.0-31.0); Mean Corpuscular Volume 97.7 fl (78.0-98.0); Mean Platelet Volume 7.7 fL (7.4-10.4); Platelet Count 320 10x3/uL (130-400); RBC Distribution Width 12.6 % (11.5-14.5); Red Blood Cell (RBC) Count 3.83 mill/uL (4.70-6.10); White Blood Cell (WBC) Count 12.5 10x3/uL (4.8-10.8)
[2022-11-26] MEDS: Sodium Chloride 0.9% 1,000 ML IV SCH (06:44)
[2022-11-26 07:00] LABS: Anion Gap 11 mmol/L (10-20); BUN (Urea Nitrogen) 10 mg/dL (8.4-25.7); Calc. Creatinine Clearance 102 mL/min (70-130); Carbon Dioxide 27 mmol/L (23-31); Chloride 108 mmol/L (98-107); Estimated GFR 96; Potassium 3.8 mmol/L (3.5-5.1); Sodium 142 mmol/L (136-145)
[2022-11-26 07:01] LABS: Calcium 8.3 mg/dL (7.8-10.44); Glucose 91 mg/dL (83-110); Magnesium 2.1 mg/dL (1.6-2.6)
[2022-11-26] MEDS: Albuterol 200 PUFF (6.7GM INHALER) INH SCH ×2 (08:17→15:37)
[2022-11-26] MEDS: Ipratropium 200 Puff Oral Inhaler INH SCH ×2 (08:18→15:37)
[2022-11-26] MEDS: Mometasone/Formoterol 200/5 60 PUFF INH SCH (08:19)
[2022-11-26] MEDS: Cefepime 2 GM in Sodium Chloride 0.9% 100 ML IVPB SCH (08:51)
[2022-11-26 12:33] LABS: Vancomycin, Trough 6.2 ug/mL
[2022-11-26 13:32] VITALS: BP 169/83; TEMP 99.2
[2022-11-26] MEDS ORDERED: Mometasone 200 MCG/Formoterol 5 MCG 120 PUFF INHALER INH SCH (18:30)
[2022-11-26] MEDS ORDERED: Montelukast Sodium 10 mg Tablet PO SCH (21:00)
== END 2022-11-26 13:44 | DRG 698 ==
LOC: SUATTDRO 09:44 → ERS 09:44 → T4-B 13:42
PROVIDERS: ADMIT Internal Medicine; ATTEND Internal Medicine
PROC: 3E03329 Introduction of Other Anti-infective into Peripheral Vein, Percutaneous Approach (ICD-10-PCS; principal; 2022-11-21)
PROC: 0T2BX0Z Change Drainage Device in Bladder, External Approach (ICD-10-PCS; 2022-11-21)
DX: T83.518A Infection and inflammatory reaction due to other urinary catheter, initial encounter (principal); A41.9 Sepsis, unspecified organism; G93.41 Metabolic encephalopathy; N39.0 Urinary tract infection, site not specified; N40.0 Benign prostatic hyperplasia without lower urinary tract symptoms; F03.90 Unspecified dementia, unspecified severity, without behavioral disturbance, psychotic disturbance, mood disturbance, and anxiety; J44.9 Chronic obstructive pulmonary disease, unspecified; T83.098A Other mechanical complication of other urinary catheter, initial encounter; Y84.6 Urinary catheterization as the cause of abnormal reaction of the patient, or of later complication, without mention of misadventure at the time of the procedure; R31.0 Gross hematuria; R91.8 Other nonspecific abnormal finding of lung field; R13.10 Dysphagia, unspecified; I11.0 Hypertensive heart disease with heart failure; I50.9 Heart failure, unspecified; F17.210 Nicotine dependence, cigarettes, uncomplicated; Z79.899 Other long term (current) drug therapy; Z78.1 Physical restraint status; Z79.82 Long term (current) use of aspirin; Z79.02 Long term (current) use of antithrombotics/antiplatelets; Z79.890 Hormone replacement therapy; Z79.51 Long term (current) use of inhaled steroids
CPT/HCPCS: 36415; 70450; 71045; 71250; 74177; 74230; 80048; 80053; 80076; 80202; 81003; 81015; 82550; 83036; 83605; 83690; 83735; 84484; 85025; 85610; 85730; 87040; 87081; 87086; 94664; 94760; 96360; 96361; 96365; J0692; J3370; J3490; J7050; Q9967

== ENCOUNTER 2023-02-22 11:26 | Emergency (ER) | payer OTHER ==
[~2023-02-22 11:26] MED LIST: Iopamidol-370 76% 500 ML MDV (1 ML CHARGE) ONE
[2023-02-22 12:19] LABS: #Basophils 0.1 thou/uL (0.0-0.2); #Eosinphils 0.1 thou/uL (0.0-0.7); #Monocytes 1.1 thou/uL (0.11-0.59); #Neutrophils 11.4 thou/uL (1.40-6.50); %Basophils 0.3 % (0.0-1.0); %Eosinophils 0.5 % (0.0-10.0); %Lymphocytes 11.9 % (21.0-51.0); %Monocytes 7.7 % (0.0-10.0); %Neutrophils 79.1 % (42.0-75.0); Hemoglobin 13.1 g/dL (14.0-18.0); Mean Corpuscular HGB CONC 32.2 g/dL (32.0-36.0); Mean Corpuscular Hemoglobin 31.2 pg (27.0-31.0); Mean Corpuscular Volume 96.9 fl (78.0-98.0); Mean Platelet Volume 10.2 fL (7.4-10.4); Platelet Count 367 10x3/uL (130-400); White Blood Cell (WBC) Count 14.4 10x3/uL (4.8-10.8)
[2023-02-22 12:39] LABS: ALT (SGPT) 19 U/L (8-55); AST (SGOT) 17 U/L (5-34); Albumin 3.8 g/dL (3.4-4.8); Alkaline Phosphatase 49 U/L (40-110); Anion Gap 12 mmol/L (10-20); BUN (Urea Nitrogen) 14 mg/dL (8.4-25.7); Bilirubin, Total 0.4 mg/dL (0.2-1.2); Calc. Creatinine Clearance 0 mL/min (70-130); Calcium 9.2 mg/dL (7.8-10.44); Carbon Dioxide 30 mmol/L (23-31); Chloride 99 mmol/L (98-107); Estimated GFR 94; Globulin 2.3 g/dL (2.4-3.5); Glucose 75 mg/dL (83-110); Lipase 44 U/L (8-78); Potassium 4.1 mmol/L (3.5-5.1); Protein, Total 6.1 g/dL (5.8-8.1); Sodium 137 mmol/L (136-145)
[2023-02-22 12:44] LABS: INR-International Normal Ratio 0.9; PTT 25.7 sec (22.9-36.1); Prothrombin Time 12.9 sec (12.0-14.7)
[2023-02-22 13:44] LABS: Bilirubin Negative (Negative); Blood, Urine Trace (Negative); CAUTI Indications for Culture Dysuria,urgency,freq; Clarity Clear (Clear); Glucose, Urine (Dipstick) Normal (Negative); Ketone, Urine Negative (Negative); Leukocyte 500 Leu/uL (Negative); Nitrite Negative (Negative); Protein, Urine (Dipstick) Negative (Neg-Trace); RBC/HPF 0-3 HPF (0-3); Specific Gravity, Urine 1.009 (1.002-1.036); Squamous Epithelial None Seen HPF (0-3); Urobilinogen Normal mg/dL (Less than 2)
[2023-02-22 13:53] LABS: Bacteria/HPF 1+ HPF (None Seen); WBC/HPF 21-50 HPF (0-3)
[2023-02-22 13:55] LABS: Urine Culture Reflex Yes Yes
== END 2023-02-22 17:49 | disposition home or self-care (01) ==
LOC: ERS 11:26
DX: N39.0 Urinary tract infection, site not specified (principal); I11.0 Hypertensive heart disease with heart failure; I50.9 Heart failure, unspecified; E78.5 Hyperlipidemia, unspecified; J44.9 Chronic obstructive pulmonary disease, unspecified; E03.9 Hypothyroidism, unspecified; Z79.899 Other long term (current) drug therapy; Z87.891 Personal history of nicotine dependence; Z79.51 Long term (current) use of inhaled steroids
CPT/HCPCS: 36415; 74177; 80053; 81001; 83605; 83690; 83880; 85025; 85610; 85730; 87077; 87086; Q9967